=== PATIENT | female | born 1955 | race Caucasian/White ===

== ENCOUNTER 2017-11-21 09:34 | Outpatient (RCR) | payer OTHER ==
[~2017-11-21 09:34] MED LIST: LIDOCAINE VISC 2% SOLN 15 ML UDC ONE
== END 2017-11-26 ==
LOC: WCC 09:34
PROVIDERS: ATTEND Plastic Surgery
DX: S51.802A Unspecified open wound of left forearm, initial encounter (principal); S51.852A Open bite of left forearm, initial encounter; I73.89 Other specified peripheral vascular diseases; I10 Essential (primary) hypertension; E03.9 Hypothyroidism, unspecified; E78.5 Hyperlipidemia, unspecified